=== PATIENT | female | born 1955 | race Two or more races ===

== ENCOUNTER 2022-12-07 08:51 | Outpatient (CLI) | payer OTHER | END 2022-12-07 09:05 | disposition home or self-care (01) | LOC: RAD 08:51 | PROVIDERS: ATTEND Internal Medicine | DX: M25.572 Pain in left ankle and joints of left foot (principal); N64.4 Mastodynia; Z12.31 Encounter for screening mammogram for malignant neoplasm of breast ==

== ENCOUNTER 2022-12-11 13:08 | Outpatient (CLI) | payer OTHER | END 2022-12-11 13:09 | disposition home or self-care (01) | LOC: NUCLEAR 13:08 | PROVIDERS: ATTEND Internal Medicine | DX: M81.0 Age-related osteoporosis without current pathological fracture (principal) ==

== ENCOUNTER 2025-06-15 12:11 | Emergency (ER) | payer OTHER ==
[~2025-06-15] VITALS: Ht 157.5 cm; Wt 65.8 kg
[2025-06-15] MEDS ORDERED: CORTISONE60 GM TOP (15:11)
[2025-06-15] MEDS ORDERED: AMOX-CLAV 875-1 EAC1 PO (15:11)
[2025-06-15] MEDS ORDERED: TETANUS & DIPHTHERIA TOX,ADULT 0.5 ML VIAL IM ONE (15:15)
[2025-06-15] MEDS ORDERED: CEFTRIAXONE SODIUM 2,000 MG VIAL IM ONE (15:15)
[2025-06-15] MEDS ORDERED: DEXAMETHASONE SODIUM PHOSPHATE 4 MG/ML VIAL IM ONE (15:15)
== END 2025-06-15 16:06 | disposition home or self-care (01) ==
LOC: ER 12:12
DX: S51.851A Open bite of right forearm, initial encounter (principal); L03.113 Cellulitis of right upper limb; W55.01XA Bitten by cat, initial encounter; Y93.89 Activity, other specified; Y92.018 Other place in single-family (private) house as the place of occurrence of the external cause; M81.8 Other osteoporosis without current pathological fracture
CPT/HCPCS: 90471; 90714; 96372; 99282; J0696; J1100; J1670